=== PATIENT | female | born 1960 | race Caucasian/White ===

== ENCOUNTER 2021-09-13 17:49 | Emergency (ER) | payer OTHER, SELFPAY ==
[2021-09-13 17:50] VITALS: BP 144/92; PULSE 81; PULSE 85; RESP 16; TEMP 36.4; O2SAT 100; BMI 33.6
--- NOTE | 2021-09-13 19:15 | CT_ITS ---
INDICATION: Right periorbital headache EXAMINATION: CT BRAIN - CT Head or Brain W/O Contrast Injection TECHNIQUE: Multiple axial images were obtained of the head without intravenous contrast. A radiation dose optimization technique was used for this scan. IV Contrast dosage and agent: None. COMPARISON: No prior head imaging. FINDINGS: BRAIN PARENCHYMA: No intra- or extra-axial hemorrhage. No intracranial mass or mass effect. Rodriguez/white matter differentiation is maintained and there is no blurring of the basal ganglia. There is no hyperdense vessel. Posterior fossa structures are unremarkable. CSF SPACES: Appropriate for age. No hydrocephalus. Basal cisterns are patent. CALVARIUM, SKULL BASE, PARANASAL SINUSES AND MASTOID AIR CELLS: Right maxillary sinus is almost completely opacified and there is a small air-fluid level in the remaining aerated portion. No sinus wall sclerosis or thinning. Right maxillary sinus outflow tract is opacified and there is scattered mucosal thickening right ethmoid air cells and also involving the right frontoethmoidal recess. Other paranasal sinuses and mastoid air cells are clear. Middle ears are normally aerated. No discrete lytic or blastic abnormalities. ORBITS: Both globes, extraocular muscles, optic nerves and retrobulbar fat appear unremarkable. ASPECTS Score for Acute Strokes: 10 CT/Brain/Head without Contrast IMPRESSION: No acute intracranial pathology. Right maxillary sinus disease extending into the axillary sinus outflow tract with mild scattered mucosal thickening ethmoid air cells and frontoethmoidal recess which is partially opacified. Electronically Signed: Mike Reyez DO at 20:[address] [facility] ,
--- NOTE | 2021-09-13 19:17 | EDS_ITS ---
HPI History of Present Illness Chief Complaint: Headache Informant: patient Onset/Context/Timing Onset: Days (9 days ago) Context: Sudden Timing: Continuous Quality -Headache: Positive for Other (Pain) Location: Right periorbital Current Severity: Moderate Maximum Severity: Severe Worsened by: Leaning forward Relieved by: Nothing Associated Symptoms/Injury Associated Symptoms: Positive for Nausea, Sore Throat and Sinus Pressure; Negative for Fever, Numbness, Tingling, Preceding Aura, Visual Changes, Blurred Vision, Photophobia and Visual Loss Injury - BOYLE: Negative for Direct Trauma Narrative Narrative: Patient is a 60-year-old woman with history of hypertension who presents with periorbital pain for 9 days. July 27 she was prescribed amoxicillin for presumed sinus infection. Mid July she had a positive Covid test. She is presently on day 7 of doxycycline and on prednisone. She denies fever. She denies double vision, blurred vision or loss of vision. She denies ringing or ears. She denies decreased hearing. She does report mild congestion, rhinorrhea and postnasal drainage. She complains of mild throat discomfort. She does have a productive cough. She denies dyspnea or dyspnea on exertion. She does report nausea and diarrhea. She states it does not smell like CDF and is still semiformed. Prior similar symptoms: Yes Recent Illness/Hospitalization: Yes PFSH PFSH Home Medications carvedilol 09/13/21 [History Last Taken Unknown] doxycycline hyclate 09/13/21 [History Last Taken Unknown] Allergy/AdvReac Type Severity Reaction Status Date / Time niacinamide Allergy Other Verified 09/13/21 19:10 gabapentin AdvReac PT UNSURE Verified 09/13/21 19:10 OF REACTION Social History (Updated 09/13/21 @ 19:[address] Juan Pablo Burt MD) household members: none Smoking Status: Current every day smoker tobacco type: cigarettes substance use type: does not use ROS ROS ED Constitutional Constitutional ED: Denies chills, fever(s), subjective, sweats or weight loss Eyes Eyes: Reports other Details: Denies photophobia ; Denies blurry vision, change in vision or diplopia ENT ENT ED: Reports rhinorrhea and sore throat; Denies ear pain Cardiovascular Cardiovascular: Denies chest pain, orthopnea, palpitations, paroxysmal nocturnal dyspnea or racing heartbeat Respiratory/Chest Respiratory/Chest: Reports cough; Denies dyspnea, dyspnea on exertion, orthopnea, paroxysmal nocturnal dyspnea or sputum Gastrointestinal Gastrointestinal: Reports diarrhea and nausea; Denies abdominal pain, constipation, melena or vomiting Genitourinary Genitourinary ED: Denies dysuria, hematuria or urinary frequency Musculoskeletal Musculoskeletal: Denies arthralgias, myalgias or neck pain Integumentary Denies rash Neurologic Neurologic: Reports headache(s); Denies paresthesias or weakness Psychiatric Psychiatric: Denies anxiety or depression Endocrine Endocrinology: Denies polydipsia or polyuria Hematologic/Lymphatic Hematologic/Lymphatic: Denies easy bleeding or easy bruising EXAM Physical Exam Const Vital Signs: 09/13/21 17:50 09/13/21 21:18 Temperature 97.5 F L Temperature Source Temporal Pulse Rate 85 89 Respiratory Rate 16 16 Blood Pressure 144/92 H 138/42 H Blood Pressure Mean 109 74 Pulse Ox 100 99 Oxygen Delivery Method Room Air Room Air Positive well nourished and well developed General Appearance ED: well developed and NAD; Negative for cyanotic, diaphoretic or pallor HEENT Reports normocephalic, TM's clear and moist mucous membranes atraumatic and tenderness; Negative for trauma or temporal artery tenderness Tympanic Membrane ED: Yes TM's clear Eyes PERRL and EOMs intact bilaterally General Eye ED: Negative for pale conjunctiva or scleral icterus Neck no lymphadenopathy, supple, no meningeal signs and no JVD Resp normal respiratory effort and clear to auscultation bilaterally Cardio regular rate, regular rhythm, S1 normal heart sound, S2 normal heart sound and no murmurs GI non-tender and non-distended Auscultation: normoactive bowel sounds Palpation: soft Back/Spine no CVA tenderness General Back: Negative for CVA tenderness or tenderness Cervical Spine: Negative for cervical spine tenderness Extremity normal to inspection, full ROM and normal capillary refill Neuro oriented x3 and CN's II-XII intact bilaterally Neuro Narrative: No dysmetria. No clonus or Babinski sign. [place] Coma Scale: document GCS findings Spontaneous Obeys Commands Oriented 15 Sensorium / Orientation: awake and alert Sensory Exam: sensory level loss detected Motor Exam: strength 5/5 throughout Psych mental status grossly normal Skin General Skin Exam: Negative for elasticity normal, jaundice or pallor Lesions: no lesions Rashes: no rashes MDM MDM MDM Narrative Medical decision making narrative: Patient with nasal drainage 4 weeks and now has significant pain that is positional. Suspect this is either due to a sinus infection or Covid since she is greater than 50 years of age blood work was obtained and a CAT scan was ordered as well. She did contact her primary care physician who referred her to the emergency department. Lab Data Attestation: I reviewed the patient's lab results. Lab results narrative: White count is elevated which is nonspecific. Basic metabolic panel is unremarkable. Labs: Laboratory Results - last 24 hr 09/13/21 09/13/21 19:27 19:27 WBC 14.6 H RBC 4.58 Hgb 14.3 Hct 43.6 MCV 95.2 MCH 31.2 MCHC 32.8 RDW Std Deviation 46.5 H RDW Coeff of [place] 13.2 Plt Count 299 MPV 9.8 Immature Gran % (Auto) 0.500 Neut % (Auto) 65.6 Lymph % (Auto) 25.5 [place] % (Auto) 7.3 Eos % (Auto) 0.8 Baso % (Auto) 0.3 Absolute Neuts (auto) 9.6 H Absolute Lymphs (auto) 3.73 Nucleated RBC % 0 Sodium 137 Potassium 4.3 Chloride 109 H Carbon Dioxide 24.0 Anion Gap 4 L BUN 18 Creatinine 0.90 Estim Creat Clear Calc 59.81 Est GFR (MDRD) Af Amer 82 Est GFR (MDRD) Non-Af 68 BUN/Creatinine Ratio 20.1 H Glucose 99 Calcium 8.9 Radiography Diagnostic Testing: Clinical Impression(s) from Imaging Studies Brain CT 09/13/21 19:15 IMPRESSION: No acute intracranial pathology. Right maxillary sinus disease extending into the axillary sinus outflow tract with mild scattered mucosal thickening ethmoid air cells and frontoethmoidal recess which is partially opacified. Electronically Signed: Mike Reyez DO at 20:07 EST , Discharge Plan Triage Chief Complaint: Headache ED Provider: Juan Pablo Burt Dx/Rx/DC Orders Clinical Impression: Right maxillary sinusitis, Acute ethmoidal sinusitis Prescriptions: No Action carvedilol 6.25 mg tablet RF: 0 doxycycline hyclate 100 mg tablet RF: 0 Primary Care Provider: Supa Rick Referrals: Jay Ruiz MD [STAFF PHYSICIAN] - 5-7 Days Supa Rick MD [Primary Care Provider] - 1 Week if not improving Activity Restrictions/Additional Instructions: Continue taking the antibiotics until gone. Disposition Disposition: Home, Self Care
[2021-09-13 20:13] LABS: Absolute Lymphocyte Count 3.73 X10^3/uL (0.83-4.51); Absolute Neutrophil Count 9.6 X10^3/uL (2.0-7.7); Basophil# 0.05 X10^3/uL; Basophil% 0.3 % (0-1); Eosinophil# 0.12 X10^3/uL; Eosinophils% 0.8 % (0-5); Hematocrit 43.6 % (37-47); Hemoglobin 14.3 g/dL (12.0-15.0); Lymphocyte # 3.73 X10^3/ul (0.83-4.51); Lymphocyte % 25.5 % (19-41); Mean Corp Hgb Conc 32.8 g/dL (32-36); Mean Corpuscular Hgb 31.2 pg (27.0-32.0); Mean Corpuscular Volume 95.2 fL (81-99); Mean Platelet Vol. 9.8 fl (6.2-12.0); Monocyte# 1.06 X10^3/uL; Monocyte% 7.3 % (0-10); NRBC Flagged by Analyzer 0 % (0-5); Neutrophil # 9.57 X10^3/uL (2.7-7.7); Neutrophil % 65.6 % (47-70); Platelet Count 299 K/mm3 (150-450); RBC Distribution Width CV 13.2 % (11.6-14.6); RBC Distribution Width SD 46.5 fl (35.1-43.9); Red Blood Count 4.58 M/mm3 (4.2-5.4); White Blood Count 14.6 K/mm3 (4.4-11.0)
[2021-09-13 21:16] LABS: Anion Gap 4 (5-15); BUN 18 mg/dL (7-18); BUN/Creat Ratio 20.1 RATIO (10-20); Calcium,Total 8.9 mg/dL (8.5-10.1); Chloride 109 mmol/L (98-107); EST Glomerular Filtration Rate 68 mL/min (>60); Est Glom Filt Rate - Afr Amer 82 mL/min (>60); Estimated Creatinine Clearance 59.81 ml/min; Glucose 99 mg/dL (74-106); Potassium 4.3 mmol/L (3.5-5.1); Sodium Level 137 mmol/L (136-145)
[2021-09-13 21:18] VITALS: BP 138/42; PULSE 89; RESP 16; O2SAT 99
--- NOTE | 2021-09-13 21:42 | NURSING ---
Headache is unchanged - patient is up for re-eval
[2021-09-13 22:26] VITALS: BP 141/79; PULSE 87; RESP 17; O2SAT 99
== END 2021-09-13 22:28 | disposition home or self-care (01) ==
PROVIDERS: Emergency Provider Emergency Medicine; PCP Family Medicine; Visit Provider Emergency Medicine
DX: J32.0 Chronic maxillary sinusitis (principal); J01.20 Acute ethmoidal sinusitis, unspecified; J34.89 Other specified disorders of nose and nasal sinuses; F17.210 Nicotine dependence, cigarettes, uncomplicated; I10 Essential (primary) hypertension; Z86.16 Personal history of COVID-19; Z23 Encounter for immunization
CPT/HCPCS: 70450; 80048; 85025; 90471; 99285; A4216

== ENCOUNTER 2021-09-20 17:18 | Outpatient (CLI) | payer OTHER, SELFPAY | END 2021-09-20 23:59 | disposition home or self-care (01) | PROVIDERS: PCP Family Medicine; Visit Provider Otolaryngology Otolaryngology/Facial Plastic Surgery | DX: J32.9 Chronic sinusitis, unspecified (principal) | CPT/HCPCS: 87070; 87077; 87186; 87205 ==